=== PATIENT | female | born 1975 | race Caucasian/White ===

== ENCOUNTER 2020-02-06 19:15 | Inpatient (IN) | payer OTHER ==
[2020-02-06 20:35] VITALS: BMI 30.7
--- NOTE | 2020-02-06 21:08 | HP ---
CIWA Score Nausea/Vomitin Muscle Tremors: 4-Moderate,w/Arms Extend Anxiety: 4-Mod. Anxious/Guarded Agitation: 4-Moderately Restless Paroxysmal Sweats: 2 Orientation: 0-Oriented Tacttile Disturbances: 0-None Auditory Disturbances: 0-None Visual Disturbances: 0-None Headache: 0-None Present CIWA-Ar Total Score: 16 - Admission Criteria OASAS Guidelines: Admission for Medically Managed Detox: Requires at least one of the followin. CIWA greater than 12 2. Seizures within the past 24 hours 3. Delirium tremens within the past 24 hours 4. Hallucinations within the past 24 hours 5. Acute intervention needed for co occurring medical disorder 6. Acute intervention needed for co occurring psychiatric disorder 7. Severe withdrawal that cannot be handled at a lower level of care (continued vomiting, continued diarrhea, abnormal vital signs) requiring intravenous medication and/or fluids 8. Admitting History and Physical - Past Medical History ...LMP: 01/22/20 ...: No - Smoking History Smoking history: Never smoked Have you smoked in the past 12 months: No Admission ROS [facility] Chief Complaint: Seeking admission to detox from alcohol Allergies/Adverse Reactions: Allergies Allergy/AdvReac Type Severity Reaction Status Date / Time No Known Allergies Allergy Verified 02/06/20 20:27 History of Present Illness: 44 years old female with three years of alcohol dependence is seeking admission to detox. This is her first admission to [facility] and first inpatient detoxification. She has medical history of hypertension, denies psych. history and denies suicide attempt/suicidal ideation at this time. She reports that she drinks a liter of wine daily. She is unemployed, lives with her family in [facility] and denies pending legal issues. 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 Exam Limitations: No Limitations - Ebola screening Have you traveled outside of the country in the last 21 days: No Have you had contact with anyone from an Ebola affected area: No Have you been sick,other than usual withdrawal symptoms: No Do you have a fever: No - Review of Systems Constitutional: Chills, Malaise, Night Sweats, Changes in sleep EENT: reports: No Symptoms Reported Respiratory: reports: No Symptoms reported Cardiac: reports: No Symptoms Reported GI: reports: Diarrhea (x 10), Nausea, Poor Appetite, Poor Fluid Intake, Vomiting (x 4), Abdominal cramping : reports: No Symptoms Reported Musculoskeletal: reports: No Symptoms Reported Integumentary: reports: Flushing Endocrine: reports: No Symptoms Reported Hematology: reports: No Symptoms Reported Psychiatric: reports: Mood/Affect Appropiate, Orientated x3, Anxious, Depressed Other Systems: Reviewed and Negative Patient History - Patient Medical History Hx Anemia: No Hx Asthma: No Hx Chronic Obstructive Pulmonary Disease (COPD): No Hx Cancer: No Hx Cardiac Disorders: No Hx Congestive Heart Failure: No Hx Hypertension: Yes (Losartan) Hx Hypercholesterolemia: No Hx Pacemaker: No HX Cerebrovascular Accident: No Hx Seizures: No Hx Diabetes: No Hx Gastrointestinal Disorders: No Hx Liver Disease: No Hx Genitourinary Disorders: No Hx Sexually Transmitted Disorders: No Hx Renal Disease (ESRD): No Hx Thyroid Disease: No Hx Human Immunodeficiency Virus (HIV): No (Negative 2020) Hx Hepatitis C: No Hx Depression: Yes Hx Suicide Attempt: No (Denies suicidal ideation) Hx Schizophrenia: No - Patient Surgical History Past Surgical History: Yes Hx Neurologic Surgery: No Hx Cataract Extraction: No Hx Cardiac Surgery: No Hx Lung Surgery: No Hx Breast Surgery: No Hx Breast Biopsy: No Hx Abdominal Surgery: No Hx Appendectomy: No Hx Cholecystectomy: No Hx Genitourinary Surgery: No Hx Section: No Hx Orthopedic Surgery: No Other Surgical History: GASTRO-BYPASS- 2007 Anesthesia Reaction: No - PPD History Previous Implant?: Yes Documented Results: Negative w/o proof Implanted On Prior R Admission?: No PPD to be Administered?: Yes - Reproductive History Patient is a Female of Child Bearing Age (11 -55 yrs old): Yes Last Menstrual Period: 01/22/20 Patient : No - Smoking Cessation Smoking history: Never smoked Have you smoked in the past 12 months: No Hx Chewing Tobacco Use: No Initiated information on smoking cessation: No - Substance & Tx. History Hx Alcohol Use: Yes Hx Substance Use: No Substance Use Type: Alcohol Hx Substance Use Treatment: No - Substances abused Alcohol Substance route: Oral Frequency: Daily Amount used: WINE- 1 LITER Age of first use: 41 Date of last use: 02/05/20 Admission Physical Exam BHS - Vital Signs Vital Signs: Vital Signs - 24 hr 02/06/20 20:29 Temperature 98.1 F Pulse Rate 82 Respiratory 18 Rate Blood Pressure 153/93 - Physical General Appearance: Yes: Moderate Distress, Tremorous, Irritable, Sweating, Anxious HEENTM: Yes: Within Normal Limits Respiratory: Yes: Lungs Clear, Normal Breath Sounds, No Respiratory Distress Neck: Yes: Within Normal Limits Breast: Yes: Breast Exam Deferred Cardiology: Yes: Within Normal Limits Abdominal: Yes: Normal Bowel Sounds, Protuberent Genitourinary: Yes: Within Normal Limits Back: Yes: Normal Inspection Musculoskeletal: Yes: Within Normal Limits Extremities: Yes: Tremors Integumentary: Yes: Warm Lymphatic: Yes: Within Normal Limits - Diagnostic (1) Alcohol dependence with withdrawal, uncomplicated Current Visit: Yes Status: Acute (2) Hypertension Current Visit: Yes Status: Chronic Qualifiers: Hypertension type: essential hypertension Qualified Code(s): I10 - Essential (primary) hypertension (3) Depression Current Visit: Yes Status: Chronic Qualifiers: Depression Type: unspecified Qualified Code(s): F32.9 - Major depressive disorder, single episode, unspecified Cleared for Admission S - Detox or Rehab [facility] Level of Care: Medically Managed Detox Regimen/Protocol: Librium Claeared for Rehab Admission: No Breathalyzer - Breathalyzer Breathalyzer: 0 Urine Drug Screen - Test Device Lot number: [id number] Expiration date: 02/20/21 - Control Is test valid?: No - Results Drug screen NEGATIVE: Yes Inpatient Rehab Admission - Rehab Decision to Admit Inpatient rehab admission?: No
[2020-02-06] MEDS ORDERED: MAG HYDROX/AL HYDROX/SIMETH 30 ML UNIT-DOSE CUP PO PRN (21:28)
[2020-02-06] MEDS ORDERED: ONDANSETRON *ODT* 4 MG TABLET SL PRN (21:28)
[2020-02-06] MEDS ORDERED: BISMUTH SUBSALICYLATE 524 MG/30 ML UD PO PRN (21:28)
[2020-02-06] MEDS ORDERED: hydrOXYzine PAMOATE 25 MG CAPSULE (FP) PO PRN (21:28)
[2020-02-06] MEDS ORDERED: METHOCARBAMOL 500 MG TABLET PO PRN (21:28)
[2020-02-06] MEDS ORDERED: ACETAMINOPHEN 325 MG TABLET (FP) PO PRN ×2 (21:28)
[2020-02-06] MEDS ORDERED: MAGNESIUM CITRATE 300 ML BOTTLE PO PRN (21:28)
[2020-02-06] MEDS ORDERED: MAGNESIUM HYDROX 2400MG/30ML ORAL SUSPENSION 30 ML CUP PO PRN (21:28)
[2020-02-06] MEDS ORDERED: MENTHOL/PHENOL 1 EACH UD MM PRN (21:28)
[2020-02-06] MEDS ORDERED: MELATONIN 5 MG TABLETS PO SCH (22:00)
[2020-02-06] MEDS: THIAMINE HCL 100 MG TABLET (FP) PO SCH (22:47)
[2020-02-06] MEDS: chlordiazePOXIDE HCL 25 MG CAPSULE PO SCH (22:47)
[2020-02-07] MEDS: chlordiazePOXIDE HCL 10 MG CAPSULE PO PRN ×2 (01:56→17:56)
[2020-02-07] MEDS: chlordiazePOXIDE HCL 25 MG CAPSULE PO SCH ×3 (05:21→21:55)
[2020-02-07] MEDS: IBUPROFEN 400 MG TABLET (FP) PO PRN (07:28)
--- NOTE | 2020-02-07 09:18 | EKG ---
Test Reason : Blood Pressure : / mmHG Vent. Rate : 073 BPM Atrial Rate : 073 BPM P-R Int : 128 ms QRS Dur : 074 ms QT Int : 422 ms P-R-T Axes : 052 027 041 degrees QTc Int : 464 ms SINUS RHYTHM WITH MARKED SINUS ARRHYTHMIA OTHERWISE NORMAL ECG NO PREVIOUS ECGS AVAILABLE Confirmed by TEX BERMUDEZ MD ([id number]) on 02/07/2020 9:17:59 AM Referred By: Confirmed By:TEX BERMUDEZ MD
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
[2020-02-07] MEDS ORDERED: hydrOXYzine PAMOATE 50 MG CAPSULE (FP) PO PRN (10:16)
[2020-02-07] MEDS: PRENATAL VITAMINS W/ FOLIC ACID TABLET (FP) PO SCH (10:27)
[2020-02-07] MEDS: LOSARTAN POTASSIUM 50 MG TABLET (FP) PO SCH (10:27)
--- NOTE | 2020-02-07 12:10 | PN ---
[facility] CIWA - CIWA Score Nausea/Vomitin-No Nausea/No Vomiting Muscle Tremors: 3 Anxiety: 3 Agitation: 3 Paroxysmal Sweats: 2 Orientation: 0-Oriented Tacttile Disturbances: 0-None Auditory Disturbances: 0-None Visual Disturbances: 0-None Headache: 0-None Present CIWA-Ar Total Score: 11 S Progress Note (SOAP) Subjective: sweats shakes interrupted sleep body aches Objective: 02/07/20 13:01 Vital Signs Temperature 97.7 F 02/07/20 05:17 Pulse Rate 110 H 02/07/20 06:48 Respiratory Rate 19 02/07/20 06:48 Blood Pressure 125/87 02/07/20 06:48 O2 Sat by Pulse Oximetry (%) 97 02/07/20 05:17 Laboratory Tests 02/06/20 02/07/20 02/07/20 20:07 08:15 08:15 WBC 5.7 RBC 3.69 Hgb 12.2 Hct 36.4 MCV 98.6 H MCH 32.9 MCHC 33.4 RDW 15.9 H Plt Count 281 MPV 7.7 Sodium 137 Potassium 3.8 Chloride 99 Carbon Dioxide 26 Anion Gap 12 BUN 6.1 L Creatinine 1.0 Est GFR (CKD-EPI)AfAm 79.35 Est GFR (CKD-EPI)NonAf 68.46 Random Glucose 123 H Calcium 8.7 Total Bilirubin 2.3 H AST 36 ALT 25 Alkaline Phosphatase 114 Total Protein 7.1 Albumin 3.5 POC Urine HCG, Qual Negative labs noted aaox3 ambulating no acute distress Assessment: 02/07/20 13:02 withdrawals Plan: continue detox
[2020-02-07 12:12] LABS: HEMATOCRIT 36.4 % (32.4-45.2); HEMOGLOBIN 12.2 GM/dL (10.7-15.3); MCH 32.9 pg (25.7-33.7); MCHC 33.4 g/dl (32.0-36.0); MEAN CELL VOLUME 98.6 fl (80-96); MEAN PLT VOLUME 7.7 fl (7.5-11.1); PLATELET COUNT 281 K/MM3 (134-434); RBC 3.69 M/mm3 (3.60-5.2); RDW 15.9 % (11.6-15.6); WHITE BLOOD COUNT 5.7 K/mm3 (4.0-10.0)
[2020-02-07 12:30] LABS: ALBUMIN 3.5 g/dl (3.4-5.0); BILIRUBIN,TOTAL 2.3 mg/dL (0.2-1); BLOOD UREA NITROGEN 6.1 mg/dL (7-18); CALCIUM 8.7 mg/dL (8.5-10.1); POTASSIUM 3.8 mmol/L (3.5-5.1); TOT PROT 7.1 g/dl (6.4-8.2)
[2020-02-07] MEDS: THIAMINE HCL 100 MG TABLET (FP) PO SCH (21:55)
[2020-02-07] MEDS: MELATONIN 5 MG TABLETS PO PRN (21:57)
[2020-02-08] MEDS: chlordiazePOXIDE 5 MG CAPSULE PO SCH ×3 (05:10→21:51)
[2020-02-08] MEDS: LOSARTAN POTASSIUM 50 MG TABLET (FP) PO SCH (10:14)
[2020-02-08] MEDS: PRENATAL VITAMINS W/ FOLIC ACID TABLET (FP) PO SCH (10:14)
--- NOTE | 2020-02-08 10:22 | PN ---
S CIWA - CIWA Score Nausea/Vomitin-No Nausea/No Vomiting Muscle Tremors: 2 Anxiety: 2 Agitation: 2 Paroxysmal Sweats: 2 Orientation: 0-Oriented Tacttile Disturbances: 0-None Auditory Disturbances: 0-None Visual Disturbances: 0-None Headache: 0-None Present CIWA-Ar Total Score: 8 BHS Progress Note (SOAP) Subjective: sweats anxiety feeling much better Objective: 02/08/20 10:22 Vital Signs Temperature 97.3 F L 02/08/20 06:35 Pulse Rate 115 H 02/08/20 06:35 Respiratory Rate 18 02/08/20 06:35 Blood Pressure 127/90 02/08/20 06:35 O2 Sat by Pulse Oximetry (%) 99 02/08/20 06:35 Assessment: 02/08/20 10:26 withdrawals Plan: continue detox clonidine 0.1mg x one d/c in am
[2020-02-08] MEDS ORDERED: cloNIDine HCL 0.1 MG TABLET PO ONE (10:30)
[2020-02-08] MEDS: THIAMINE HCL 100 MG TABLET (FP) PO SCH (21:54)
[2020-02-08] MEDS: MELATONIN 5 MG TABLETS PO PRN (21:54)
[2020-02-09] MEDS ORDERED: chlordiazePOXIDE HCL 10 MG CAPSULE PO PRN
[2020-02-09] MEDS: IBUPROFEN 400 MG TABLET (FP) PO PRN (01:49)
[2020-02-09] MEDS ORDERED: chlordiazePOXIDE HCL 10 MG CAPSULE PO SCH (05:00)
[2020-02-09] MEDS ORDERED: chlordiazePOXIDE HCL 10 MG CAPSULE PO ONE (05:00)
[2020-02-09 05:56] VITALS: BP 113/77; PULSE 80; TEMP 97.3
--- NOTE | 2020-02-09 08:55 | DS ---
[facility] Detox Discharge Summary Admission Date: 02/06/20 Discharge Date: 02/09/20 - History Present History: Alcohol Dependence - Physical Exam Results Vital Signs: Vital Signs Temperature 97.3 F L 02/09/20 05:55 Pulse Rate 80 02/09/20 05:55 Respiratory Rate 18 02/09/20 05:55 Blood Pressure 113/77 02/09/20 05:55 O2 Sat by Pulse Oximetry (%) 96 02/09/20 05:55 Pertinent Admission Physical Exam Findings: Vital Signs Temperature 97.3 F L 02/09/20 05:55 Pulse Rate 80 02/09/20 05:55 Respiratory Rate 18 02/09/20 05:55 Blood Pressure 113/77 02/09/20 05:55 O2 Sat by Pulse Oximetry (%) 96 02/09/20 05:55 Laboratory Tests 02/06/20 02/06/20 02/07/20 20:07 21:29 08:15 WBC RBC Hgb Hct MCV MCH MCHC RDW Plt Count MPV Sodium Potassium Chloride Carbon Dioxide Anion Gap BUN Creatinine Est GFR (CKD-EPI)AfAm Est GFR (CKD-EPI)NonAf Random Glucose Calcium Total Bilirubin AST ALT Alkaline Phosphatase Total Protein Albumin POC Urine HCG, Qual Negative Syphilis Serology Non-reactive COVID-19 (BRANDON) Not detected 02/07/20 02/07/20 08:15 08:15 WBC 5.7 RBC 3.69 Hgb 12.2 Hct 36.4 MCV 98.6 H MCH 32.9 MCHC 33.4 RDW 15.9 H Plt Count 281 MPV 7.7 Sodium 137 Potassium 3.8 Chloride 99 Carbon Dioxide 26 Anion Gap 12 BUN 6.1 L Creatinine 1.0 Est GFR (CKD-EPI)AfAm 79.35 Est GFR (CKD-EPI)NonAf 68.46 Random Glucose 123 H Calcium 8.7 Total Bilirubin 2.3 H AST 36 ALT 25 Alkaline Phosphatase 114 Total Protein 7.1 Albumin 3.5 POC Urine HCG, Qual Syphilis Serology COVID-19 (BRANDON) labs noted aaox3 ambulating no acute distress lungs CTA - Treatment Hospital Course: Detox Protocol Followed, Detoxed Safely, Responded well, Discharged Condition Good, Rehab Referral Accepted - Medication Discharge Medications: Ambulatory Orders Losartan Potassium [Cozaar -] 100 mg PO DAILY 02/06/20 - Diagnosis (1) Alcohol dependence with withdrawal, uncomplicated Current Visit: Yes Status: Chronic (2) Alcohol-induced anxiety disorder Current Visit: Yes Status: Acute (3) Alcohol-induced mood disorder Current Visit: Yes Status: Acute (4) Alcohol-induced sleep disorder Current Visit: Yes Status: Acute (5) Adjustment disorder with mixed anxiety and depressed mood Current Visit: Yes Status: Chronic (6) Depression Current Visit: Yes Status: Chronic Qualifiers: Depression Type: unspecified Qualified Code(s): F32.9 - Major depressive disorder, single episode, unspecified (7) Hypertension Current Visit: Yes Status: Chronic Qualifiers: Hypertension type: essential hypertension Qualified Code(s): I10 - Essential (primary) hypertension (8) Gastric bypass status for obesity Current Visit: Yes Status: Resolved (9) MDD (major depressive disorder), recurrent episode, moderate Current Visit: Yes Status: Ruled-out - AMA Did Patient Leave Against Medical Advice: No
[2020-02-10] MEDS ORDERED: chlordiazePOXIDE HCL 10 MG CAPSULE PO ONE (05:00)
== END 2020-02-09 09:12 | disposition home or self-care (01) | DRG 775 ==
LOC: YASAS 19:15 → Y6N 21:44
PROVIDERS: ADMIT Allergy & Immunology; ATTEND Allergy & Immunology
PROC: HZ2ZZZZ Detoxification Services for Substance Abuse Treatment (ICD-10-PCS; principal; 2020-02-06)
DX: F10.230 Alcohol dependence with withdrawal, uncomplicated (principal); F10.282 Alcohol dependence with alcohol-induced sleep disorder; F10.280 Alcohol dependence with alcohol-induced anxiety disorder; F10.24 Alcohol dependence with alcohol-induced mood disorder; F32.9 Major depressive disorder, single episode, unspecified; F43.23 Adjustment disorder with mixed anxiety and depressed mood; I10 Essential (primary) hypertension; Z98.84 Bariatric surgery status; Z56.0 Unemployment, unspecified
CPT/HCPCS: 36415; 80053; 81025; 85027; 86780; 93005; 93010; J0735; U0003

== ENCOUNTER 2020-03-13 20:47 | Inpatient (IN) | payer OTHER ==
[2020-03-13 21:18] VITALS: BMI 29.8
--- NOTE | 2020-03-13 22:33 | BHS.RME ---
Substance Use & Tx History - Substance Use History Alcohol Substance amount: 2 bottles of wine and 4 x 6-pk beer Frequency of use: Daily Substance route: Oral - Last Treatment Date of last treatment: January 2019 Where was last treatment: Detox Physical/Psych/Mental Status - Behavior General Behavior: Increased activity (restlessness, agitation) - Cooperativeness Cooperativeness: Cooperative - Thinking Thought Processes: Logical - Physical Health Problems Is patient presently having any pain?: No Does patient presently have any injuries (include location): No Does patient currently have a fever: No CIWA Nausea/Vomitin Muscle Tremors: 5 Anxiety: 4-Mod. Anxious/Guarded Agitation: 1-Slight > Activity Paroxysmal Sweats: 1-Minimal Palms Moist Orientation: 0-Oriented Tacttile Disturbances: 2-Mild Itch/Numbness/Burn Auditory Disturbances: 0-None Visual Disturbances: 0-None Headache: 4-Moderately Severe CIWA-Ar Total Score: 20
--- NOTE | 2020-03-13 22:39 | HP ---
CIWA Score Nausea/Vomitin Muscle Tremors: 5 Anxiety: 4-Mod. Anxious/Guarded Agitation: 1-Slight > Activity Paroxysmal Sweats: 1-Minimal Palms Moist Orientation: 0-Oriented Tacttile Disturbances: 2-Mild Itch/Numbness/Burn Auditory Disturbances: 0-None Visual Disturbances: 0-None Headache: 4-Moderately Severe CIWA-Ar Total Score: 20 - Admission Criteria OASAS Guidelines: Admission for Medically Managed Detox: Requires at least one of the followin. CIWA greater than 12 2. Seizures within the past 24 hours 3. Delirium tremens within the past 24 hours 4. Hallucinations within the past 24 hours 5. Acute intervention needed for co occurring medical disorder 6. Acute intervention needed for co occurring psychiatric disorder 7. Severe withdrawal that cannot be handled at a lower level of care (continued vomiting, continued diarrhea, abnormal vital signs) requiring intravenous medication and/or fluids 8. Admitting History and Physical - Past Medical History ...LMP: 01/22/20 - Smoking History Smoking history: Never smoked Have you smoked in the past 12 months: No - Alcohol/Substance Use Hx Alcohol Use: Yes Admission [facility] Allergies/Adverse Reactions: Allergies Allergy/AdvReac Type Severity Reaction Status Date / Time No Known Allergies Allergy Verified 03/13/20 23:52 History of Present Illness: 44 y.o. female requesting detox from alcohol use , latest use today , denies seizures , admits to blackouts , reports tremors if not drinking alcohol , starts drinking in the mornings . PMHX : HTN on Losartan 100 mg daily PSHx : gastric bypass lmp February 20 2020 tobacco : denies Exam Limitations: Clinical Condition - Review of Systems Constitutional: Loss of Appetite EENT: reports: No Symptoms Reported Respiratory: reports: No Symptoms reported Cardiac: reports: Palpitations GI: reports: Diarrhea, Nausea, Poor Appetite, Vomiting : reports: Other (reports decreased urination since she started having diarrhea) Integumentary: reports: Dryness, Other (states allergic to contrast given in Hospital , had CT 2/2 fall) Neuro: reports: Headache, Tremors, Unsteady Gait Endocrine: reports: No Symptoms Reported Hematology: reports: No Symptoms Reported Psychiatric: reports: Orientated x3, Agitated, Anxious, Depressed Patient History - Patient Medical History Hx Anemia: No Hx Asthma: No Hx Chronic Obstructive Pulmonary Disease (COPD): No Hx Cancer: No Hx Cardiac Disorders: No Hx Congestive Heart Failure: No Hx Hypertension: Yes (Losartan) Hx Hypercholesterolemia: No Hx Pacemaker: No HX Cerebrovascular Accident: No Hx Seizures: No Hx Diabetes: No Hx Gastrointestinal Disorders: No Hx Liver Disease: No Hx Genitourinary Disorders: No Hx Sexually Transmitted Disorders: No Hx Renal Disease (ESRD): No Hx Thyroid Disease: No Hx Human Immunodeficiency Virus (HIV): No (Negative 2020) Hx Hepatitis C: No Hx Depression: Yes Hx Suicide Attempt: No (Denies suicidal ideation) Hx Schizophrenia: No - Patient Surgical History Past Surgical History: Yes Hx Neurologic Surgery: No Hx Cataract Extraction: No Hx Cardiac Surgery: No Hx Lung Surgery: No Hx Breast Surgery: No Hx Breast Biopsy: No Hx Abdominal Surgery: No Hx Appendectomy: No Hx Cholecystectomy: No Hx Genitourinary Surgery: No Hx Section: No Hx Orthopedic Surgery: No Other Surgical History: [id number] Anesthesia Reaction: No - PPD History Date: 02/08/20 - Reproductive History Last Menstrual Period: 01/22/20 - Smoking Cessation Smoking history: Never smoked Have you smoked in the past 12 months: No Hx Chewing Tobacco Use: No Admission Physical Exam BHS - Vital Signs Vital Signs: Vital Signs - 24 hr 03/13/20 21:17 Temperature 97.3 F L Pulse Rate 98 H Respiratory 19 Rate Blood Pressure 158/109 H - Physical General Appearance: Yes: Disheveled, Tremorous, Anxious HEENTM: Yes: EOMI, Hearing grossly Normal, Normocephalic, Normal Voice Respiratory: Yes: Chest Non-Tender, Lungs Clear, Normal Breath Sounds, No Respiratory Distress, No Accessory Muscle Use Neck: Yes: No masses,lesions,Nodules, Trachea in good position Cardiology: Yes: Regular Rhythm, Regular Rate, S1, S2, Tachycardia Abdominal: Yes: Normal Bowel Sounds, Non Tender, Soft Back: Yes: Normal Inspection Musculoskeletal: Yes: Gait Steady, Back pain Extremities: Yes: Non-Tender, Tremors Neurological: Yes: Alert, Motor Strength 5/5 Integumentary: Yes: Dry, Other (descuamation bernadine feet .) - Diagnostic (1) Alcohol dependence with withdrawal, uncomplicated Current Visit: Yes Status: Chronic Breathalyzer - Breathalyzer Breathalyzer: 0 Urine Drug Screen - Test Device Lot number: [id number] Expiration date: 01/24/22 - Control Is test valid?: Yes - Results Drug screen NEGATIVE: No Urine drug screen results: BZO-Benzodiazepines Inpatient Rehab Admission - Rehab Decision to Admit Inpatient rehab admission?: No
[2020-03-13] MEDS ORDERED: ONDANSETRON *ODT* 4 MG TABLET SL PRN (22:41)
[2020-03-13] MEDS ORDERED: ACETAMINOPHEN 325 MG TABLET (FP) PO PRN (22:41)
[2020-03-13] MEDS ORDERED: MAG HYDROX/AL HYDROX/SIMETH 30 ML UNIT-DOSE CUP PO PRN (22:41)
[2020-03-13] MEDS ORDERED: MAGNESIUM CITRATE 300 ML BOTTLE PO PRN (22:41)
[2020-03-13] MEDS ORDERED: MENTHOL/PHENOL 1 EACH UD MM PRN (22:41)
[2020-03-13] MEDS ORDERED: MAGNESIUM HYDROX 2400MG/30ML ORAL SUSPENSION 30 ML CUP PO PRN (22:41)
[2020-03-13] MEDS ORDERED: chlordiazePOXIDE HCL 25 MG CAPSULE PO PRN (22:43)
[2020-03-13] MEDS ORDERED: METOPROLOL TARTRATE 25 MG TABLET (FP) PO ONE (23:30)
[2020-03-13] MEDS: chlordiazePOXIDE HCL 25 MG CAPSULE PO SCH (23:51)
[2020-03-14] MEDS: METHOCARBAMOL 500 MG TABLET PO PRN (00:06)
[2020-03-14] MEDS: ACETAMINOPHEN 325 MG TABLET (FP) PO PRN ×2 (01:40→23:16)
[2020-03-14] MEDS: chlordiazePOXIDE HCL 25 MG CAPSULE PO SCH ×4 (05:40→22:07)
[2020-03-14] MEDS: LOSARTAN POTASSIUM 50 MG TABLET (FP) PO SCH (10:08)
[2020-03-14 10:28] LABS: BLOOD UREA NITROGEN 18.4 mg/dL (7-18); CREATININE 1.4 mg/dL (0.55-1.3); POTASSIUM 3.3 mmol/L (3.5-5.1); TOT PROT 6.8 g/dl (6.4-8.2)
[2020-03-14 10:32] LABS: BILIRUBIN,TOTAL 1.8 mg/dL (0.2-1)
[2020-03-14] MEDS: PRENATAL VITAMINS W/ FOLIC ACID TABLET (FP) PO SCH (10:36)
[2020-03-14 10:53] LABS: MCH 31.7 pg (25.7-33.7); MCHC 33.3 g/dl (32.0-36.0); MEAN CELL VOLUME 95.4 fl (80-96); MEAN PLT VOLUME 8.1 fl (7.5-11.1); PLATELET COUNT 195 K/MM3 (134-434); RBC 4.09 M/mm3 (3.60-5.2); RDW 14.6 % (11.6-15.6)
--- NOTE | 2020-03-14 12:34 | PN ---
S CIWA - CIWA Score Nausea/Vomitin-No Nausea/No Vomiting Muscle Tremors: 3 Anxiety: 2 Agitation: 3 Paroxysmal Sweats: 3 Orientation: 0-Oriented Tacttile Disturbances: 0-None Auditory Disturbances: 0-None Visual Disturbances: 0-None Headache: 0-None Present CIWA-Ar Total Score: 11 S Progress Note (SOAP) Subjective: sweats shakes agitation interrupted sleep body aches irritable Objective: 03/14/20 12:31 Vital Signs Temperature 98.9 F 03/14/20 08:35 Pulse Rate 104 H 03/14/20 08:35 Respiratory Rate 16 03/14/20 08:35 Blood Pressure 122/83 03/14/20 08:35 O2 Sat by Pulse Oximetry (%) 97 03/14/20 05:37 Laboratory Tests 03/13/20 03/14/20 03/14/20 21:10 08:00 08:00 WBC 15.0 H RBC 4.09 Hgb 13.0 Hct 39.0 MCV 95.4 MCH 31.7 MCHC 33.3 RDW 14.6 Plt Count 195 D MPV 8.1 Sodium 134 L Potassium 3.3 L Chloride 98 Carbon Dioxide 25 Anion Gap 11 BUN 18.4 H Creatinine 1.4 H Est GFR (CKD-EPI)AfAm 52.83 Est GFR (CKD-EPI)NonAf 45.58 Random Glucose 142 H Calcium 8.0 L Total Bilirubin 1.8 H AST 120 H ALT 52 Alkaline Phosphatase 100 Total Protein 6.8 Albumin 3.0 L POC Urine HCG, Qual Negative labs noted elevated WBC noted low potassium 3.3 noted elevated BUN, glucose, bilirubin and ast. aaox3 ambulating no acute distress Assessment: 03/14/20 12:33 withdrawals Plan: continue detox increase fluids repeat labs kdur ordered
[2020-03-14] MEDS: POTASSIUM CHLORIDE TABS 20 MEQ TABLET.ER (FP) PO SCH (12:46)
[2020-03-14] MEDS ORDERED: MELATONIN 5 MG TABLETS PO SCH (22:00)
[2020-03-14] MEDS: THIAMINE HCL 100 MG TABLET (FP) PO SCH (22:07)
[2020-03-15] MEDS: chlordiazePOXIDE HCL 25 MG CAPSULE PO SCH ×4 (06:31→22:45)
[2020-03-15] MEDS: ACETAMINOPHEN 325 MG TABLET (FP) PO PRN ×2 (06:32→17:57)
[2020-03-15] MEDS: LOSARTAN POTASSIUM 50 MG TABLET (FP) PO SCH (10:21)
[2020-03-15] MEDS: PRENATAL VITAMINS W/ FOLIC ACID TABLET (FP) PO SCH (10:21)
[2020-03-15] MEDS: POTASSIUM CHLORIDE TABS 20 MEQ TABLET.ER (FP) PO SCH (10:21)
--- NOTE | 2020-03-15 13:31 | PN ---
S CIWA - CIWA Score Nausea/Vomitin-No Nausea/No Vomiting Muscle Tremors: 3 Anxiety: 2 Agitation: 2 Paroxysmal Sweats: 2 Orientation: 0-Oriented Tacttile Disturbances: 0-None Auditory Disturbances: 0-None Visual Disturbances: 0-None Headache: 0-None Present CIWA-Ar Total Score: 9 BHS Progress Note (SOAP) Subjective: sweats little shakes interrupted sleep body aches Objective: 03/15/20 13:31 Vital Signs Temperature 98.6 F 03/15/20 08:39 Pulse Rate 102 H 03/15/20 08:39 Respiratory Rate 18 03/15/20 08:39 Blood Pressure 126/76 03/15/20 08:39 O2 Sat by Pulse Oximetry (%) 97 03/15/20 08:39 Laboratory Tests 03/13/20 03/13/20 03/14/20 11:30 21:10 08:00 WBC RBC Hgb Hct MCV MCH MCHC RDW Plt Count MPV Sodium Potassium Chloride Carbon Dioxide Anion Gap BUN Creatinine Est GFR (CKD-EPI)AfAm Est GFR (CKD-EPI)NonAf Random Glucose Calcium Total Bilirubin AST ALT Alkaline Phosphatase Total Protein Albumin POC Urine HCG, Qual Negative Syphilis Serology Non-reactive COVID-19 (BR[facility]ON) Not detected 03/14/20 03/14/20 08:00 08:00 WBC 15.0 H RBC 4.09 Hgb 13.0 Hct 39.0 MCV 95.4 MCH 31.7 MCHC 33.3 RDW 14.6 Plt Count 195 D MPV 8.1 Sodium 134 L Potassium 3.3 L Chloride 98 Carbon Dioxide 25 Anion Gap 11 BUN 18.4 H Creatinine 1.4 H Est GFR (CKD-EPI)AfAm 52.83 Est GFR (CKD-EPI)NonAf 45.58 Random Glucose 142 H Calcium 8.0 L Total Bilirubin 1.8 H AST 120 H ALT 52 Alkaline Phosphatase 100 Total Protein 6.8 Albumin 3.0 L POC Urine HCG, Qual Syphilis Serology COVID-19 (BRANDON) repeat labs have been ordered aaox3 ambulating no acute distress Assessment: 03/15/20 13:31 withdrawals Plan: continue detox
--- NOTE | 2020-03-15 13:56 | EKG ---
Test Reason : Blood Pressure : / mmHG Vent. Rate : 121 BPM Atrial Rate : 121 BPM P-R Int : 136 ms QRS Dur : 082 ms QT Int : 318 ms P-R-T Axes : 046 005 042 degrees QTc Int : 451 ms SINUS TACHYCARDIA OTHERWISE NORMAL ECG WHEN COMPARED WITH ECG OF 06-FEB-2020 20:47, VENT. RATE HAS INCREASED BY 48 BPM Confirmed by Derian Joya ([id number]) on 03/15/2020 1:55:53 PM Referred By: Tariq Martin Confirmed By:Derian Joya
[2020-03-15] MEDS: MELATONIN 5 MG TABLETS PO SCH (22:45)
[2020-03-15] MEDS: THIAMINE HCL 100 MG TABLET (FP) PO SCH (22:45)
[2020-03-16] MEDS ORDERED: chlordiazePOXIDE HCL 10 MG CAPSULE PO PRN
[2020-03-16] MEDS: hydrOXYzine PAMOATE 25 MG CAPSULE (FP) PO PRN (01:09)
[2020-03-16] MEDS: chlordiazePOXIDE HCL 10 MG CAPSULE PO SCH ×4 (05:18→22:12)
[2020-03-16] MEDS: ACETAMINOPHEN 325 MG TABLET (FP) PO PRN (05:20)
[2020-03-16] MEDS ORDERED: cloNIDine HCL 0.1 MG TABLET PO ONE (08:48)
[2020-03-16] MEDS: LOSARTAN POTASSIUM 50 MG TABLET (FP) PO SCH (10:26)
[2020-03-16] MEDS: POTASSIUM CHLORIDE TABS 20 MEQ TABLET.ER (FP) PO SCH (10:27)
[2020-03-16] MEDS: PRENATAL VITAMINS W/ FOLIC ACID TABLET (FP) PO SCH (10:27)
[2020-03-16 10:56] LABS: BASO % 0.2 % (0-2.0); EOS % 0.2 % (0-4.5); HEMATOCRIT 34.7 % (32.4-45.2); HEMOGLOBIN 11.5 GM/dL (10.7-15.3); LYMPH % 7.7 % (8-40); MCH 31.9 pg (25.7-33.7); MCHC 33.1 g/dl (32.0-36.0); MEAN CELL VOLUME 96.4 fl (80-96); MEAN PLT VOLUME 9.4 fl (7.5-11.1); MONO % 5.3 % (3.8-10.2); NEUT % 86.6 % (42.8-82.8); PLATELET COUNT 114 K/MM3 (134-434); RBC 3.59 M/mm3 (3.60-5.2); RDW 15.2 % (11.6-15.6); WHITE BLOOD COUNT 9.5 K/mm3 (4.0-10.0)
[2020-03-16 11:05] LABS: ALBUMIN 2.2 g/dl (3.4-5.0); BILIRUBIN,TOTAL 0.5 mg/dL (0.2-1); BLOOD UREA NITROGEN 22.5 mg/dL (7-18); CALCIUM 7.9 mg/dL (8.5-10.1); POTASSIUM 3.8 mmol/L (3.5-5.1); TOT PROT 5.9 g/dl (6.4-8.2)
--- NOTE | 2020-03-16 14:26 | PN ---
S CIWA - CIWA Score Nausea/Vomitin-No Nausea/No Vomiting Muscle Tremors: 2 Anxiety: 1-Mildly Anxious Agitation: 1-Slight > Activity Paroxysmal Sweats: 1-Minimal Palms Moist Orientation: 0-Oriented Tacttile Disturbances: 0-None Auditory Disturbances: 0-None Visual Disturbances: 0-None Headache: 0-None Present CIWA-Ar Total Score: 5 BHS Progress Note (SOAP) Subjective: agitation anxiety restless Objective: 03/16/20 14:24 Vital Signs Temperature 97.1 F L 03/16/20 13:02 Pulse Rate 112 H 03/16/20 13:02 Respiratory Rate 20 03/16/20 13:02 Blood Pressure 102/59 L 03/16/20 13:02 O2 Sat by Pulse Oximetry (%) 100 03/16/20 13:02 Laboratory Tests 03/13/20 03/13/20 03/14/20 11:30 21:10 08:00 WBC RBC Hgb Hct MCV MCH MCHC RDW Plt Count MPV Absolute Neuts (auto) Neutrophils % Lymphocytes % Monocytes % Eosinophils % Basophils % Nucleated RBC % Sodium Potassium Chloride Carbon Dioxide Anion Gap BUN Creatinine Est GFR (CKD-EPI)AfAm Est GFR (CKD-EPI)NonAf Random Glucose Calcium Total Bilirubin AST ALT Alkaline Phosphatase Total Protein Albumin POC Urine HCG, Qual Negative Syphilis Serology Non-reactive COVID-19 ([facility]) Not detected 03/14/20 03/14/20 03/16/20 08:00 08:00 07:50 WBC 15.0 H 9.5 RBC 4.09 3.59 L Hgb 13.0 11.5 Hct 39.0 34.7 MCV 95.4 96.4 H MCH 31.7 31.9 MCHC 33.3 33.1 RDW 14.6 15.2 Plt Count 195 D 114 L D MPV 8.1 9.4 D Absolute Neuts (auto) 8.3 H Neutrophils % 86.6 H Lymphocytes % 7.7 L Monocytes % 5.3 Eosinophils % 0.2 Basophils % 0.2 Nucleated RBC % 0 Sodium 134 L Potassium 3.3 L Chloride 98 Carbon Dioxide 25 Anion Gap 11 BUN 18.4 H Creatinine 1.4 H Est GFR (CKD-EPI)AfAm 52.83 Est GFR (CKD-EPI)NonAf 45.58 Random Glucose 142 H Calcium 8.0 L Total Bilirubin 1.8 H AST 120 H ALT 52 Alkaline Phosphatase 100 Total Protein 6.8 Albumin 3.0 L POC Urine HCG, Qual Syphilis Serology COVID-19 ([facility]) 03/16/20 07:50 WBC RBC Hgb Hct MCV MCH MCHC RDW Plt Count MPV Absolute Neuts (auto) Neutrophils % Lymphocytes % Monocytes % Eosinophils % Basophils % Nucleated RBC % Sodium 139 Potassium 3.8 Chloride 106 Carbon Dioxide 26 Anion Gap 6 L BUN 22.5 H Creatinine 1.0 Est GFR (CKD-EPI)AfAm 79.35 Est GFR (CKD-EPI)NonAf 68.46 Random Glucose 88 Calcium 7.9 L Total Bilirubin 0.5 AST 44 H ALT 38 Alkaline Phosphatase 120 H Total Protein 5.9 L Albumin 2.2 L POC Urine HCG, Qual Syphilis Serology COVID-19 ([facility]ON) aaox3 ambulating no acute distress labs noted potassium, ast improving BUN increased; encouraged fluids Assessment: 03/16/20 14:25 withdrawals Plan: continue detox
[2020-03-16] MEDS: BISMUTH SUBSALICYLATE 524 MG/30 ML UD PO PRN ×2 (18:18→21:34)
[2020-03-16] MEDS: THIAMINE HCL 100 MG TABLET (FP) PO SCH (22:12)
[2020-03-16] MEDS: MELATONIN 5 MG TABLETS PO SCH (23:56)
[2020-03-17] MEDS: METHOCARBAMOL 500 MG TABLET PO PRN (04:08)
[2020-03-17] MEDS ORDERED: chlordiazePOXIDE HCL 10 MG CAPSULE PO SCH (05:00)
[2020-03-17] MEDS: ACETAMINOPHEN 325 MG TABLET (FP) PO PRN (05:37)
--- NOTE | 2020-03-17 09:16 | PN ---
S CIWA - CIWA Score Nausea/Vomitin-No Nausea/No Vomiting Muscle Tremors: 1-None Visible, but Rush Anxiety: 1-Mildly Anxious Agitation: 0-Normal Activity Paroxysmal Sweats: No Perspiration Orientation: 0-Oriented Tacttile Disturbances: 0-None Auditory Disturbances: 0-None Visual Disturbances: 0-None Headache: 0-None Present CIWA-Ar Total Score: 2 BHS Progress Note (SOAP) Subjective: feeling better Objective: 03/17/20 09:13 Vital Signs Temperature 98.2 03/17/20 09:15 Pulse Rate 118 03/17/20 09:15 Respiratory Rate 20 03/17/20 09:15 Blood Pressure 119/76 03/17/20 09:15 O2 Sat by Pulse Oximetry (%) 100 03/17/20 09:15 Laboratory Tests 03/13/20 03/13/20 03/14/20 11:30 21:10 08:00 WBC RBC Hgb Hct MCV MCH MCHC RDW Plt Count MPV Absolute Neuts (auto) Neutrophils % Lymphocytes % Monocytes % Eosinophils % Basophils % Nucleated RBC % Sodium Potassium Chloride Carbon Dioxide Anion Gap BUN Creatinine Est GFR (CKD-EPI)AfAm Est GFR (CKD-EPI)NonAf Random Glucose Calcium Total Bilirubin AST ALT Alkaline Phosphatase Total Protein Albumin POC Urine HCG, Qual Negative Syphilis Serology Non-reactive COVID-19 ([facility]) Not detected 03/14/20 03/14/20 03/16/20 08:00 08:00 07:50 WBC 15.0 H 9.5 RBC 4.09 3.59 L Hgb 13.0 11.5 Hct 39.0 34.7 MCV 95.4 96.4 H MCH 31.7 31.9 MCHC 33.3 33.1 RDW 14.6 15.2 Plt Count 195 D 114 L D MPV 8.1 9.4 D Absolute Neuts (auto) 8.3 H Neutrophils % 86.6 H Lymphocytes % 7.7 L Monocytes % 5.3 Eosinophils % 0.2 Basophils % 0.2 Nucleated RBC % 0 Sodium 134 L Potassium 3.3 L Chloride 98 Carbon Dioxide 25 Anion Gap 11 BUN 18.4 H Creatinine 1.4 H Est GFR (CKD-EPI)AfAm 52.83 Est GFR (CKD-EPI)NonAf 45.58 Random Glucose 142 H Calcium 8.0 L Total Bilirubin 1.8 H AST 120 H ALT 52 Alkaline Phosphatase 100 Total Protein 6.8 Albumin 3.0 L POC Urine HCG, Qual Syphilis Serology COVID-19 ([facility]) 03/16/20 07:50 WBC RBC Hgb Hct MCV MCH MCHC RDW Plt Count MPV Absolute Neuts (auto) Neutrophils % Lymphocytes % Monocytes % Eosinophils % Basophils % Nucleated RBC % Sodium 139 Potassium 3.8 Chloride 106 Carbon Dioxide 26 Anion Gap 6 L BUN 22.5 H Creatinine 1.0 Est GFR (CKD-EPI)AfAm 79.35 Est GFR (CKD-EPI)NonAf 68.46 Random Glucose 88 Calcium 7.9 L Total Bilirubin 0.5 AST 44 H ALT 38 Alkaline Phosphatase 120 H Total Protein 5.9 L Albumin 2.2 L POC Urine HCG, Qual Syphilis Serology COVID-19 ([facility]ON) aaox3 ambulating no acute distress lungs CTA Assessment: 03/17/20 09:19 no s/s of withdrawals noted Plan: d/c today
[2020-03-17] MEDS: hydrOXYzine PAMOATE 25 MG CAPSULE (FP) PO PRN (09:19)
--- NOTE | 2020-03-17 09:24 | DS ---
[facility] Detox Discharge Summary Admission Date: 03/13/20 Discharge Date: 03/17/20 - History Present History: Alcohol Dependence - Physical Exam Results Vital Signs: Vital Signs Temperature 96.4 F L 03/17/20 05:24 Pulse Rate 101 H 03/17/20 05:24 Respiratory Rate 03/17/20 05:24 Blood Pressure 138/86 03/17/20 05:24 O2 Sat by Pulse Oximetry (%) 99 03/17/20 05:24 Pertinent Admission Physical Exam Findings: Vital Signs Temperature 96.4 F L 03/17/20 05:24 Pulse Rate 101 H 03/17/20 05:24 Respiratory Rate 03/17/20 05:24 Blood Pressure 138/86 03/17/20 05:24 O2 Sat by Pulse Oximetry (%) 99 03/17/20 05:24 Laboratory Tests 03/13/20 03/13/20 03/14/20 11:30 21:10 08:00 WBC RBC Hgb Hct MCV MCH MCHC RDW Plt Count MPV Absolute Neuts (auto) Neutrophils % Lymphocytes % Monocytes % Eosinophils % Basophils % Nucleated RBC % Sodium Potassium Chloride Carbon Dioxide Anion Gap BUN Creatinine Est GFR (CKD-EPI)AfAm Est GFR (CKD-EPI)NonAf Random Glucose Calcium Total Bilirubin AST ALT Alkaline Phosphatase Total Protein Albumin POC Urine HCG, Qual Negative Syphilis Serology Non-reactive COVID-19 (BRANDON) Not detected 03/14/20 03/14/20 03/16/20 08:00 08:00 07:50 WBC 15.0 H 9.5 RBC 4.09 3.59 L Hgb 13.0 11.5 Hct 39.0 34.7 MCV 95.4 96.4 H MCH 31.7 31.9 MCHC 33.3 33.1 RDW 14.6 15.2 Plt Count 195 D 114 L D MPV 8.1 9.4 D Absolute Neuts (auto) 8.3 H Neutrophils % 86.6 H Lymphocytes % 7.7 L Monocytes % 5.3 Eosinophils % 0.2 Basophils % 0.2 Nucleated RBC % 0 Sodium 134 L Potassium 3.3 L Chloride 98 Carbon Dioxide 25 Anion Gap 11 BUN 18.4 H Creatinine 1.4 H Est GFR (CKD-EPI)AfAm 52.83 Est GFR (CKD-EPI)NonAf 45.58 Random Glucose 142 H Calcium 8.0 L Total Bilirubin 1.8 H AST 120 H ALT 52 Alkaline Phosphatase 100 Total Protein 6.8 Albumin 3.0 L POC Urine HCG, Qual Syphilis Serology COVID-19 ([facility]ON) 03/16/20 07:50 WBC RBC Hgb Hct MCV MCH MCHC RDW Plt Count MPV Absolute Neuts (auto) Neutrophils % Lymphocytes % Monocytes % Eosinophils % Basophils % Nucleated RBC % Sodium 139 Potassium 3.8 Chloride 106 Carbon Dioxide 26 Anion Gap 6 L BUN 22.5 H Creatinine 1.0 Est GFR (CKD-EPI)AfAm 79.35 Est GFR (CKD-EPI)NonAf 68.46 Random Glucose 88 Calcium 7.9 L Total Bilirubin 0.5 AST 44 H ALT 38 Alkaline Phosphatase 120 H Total Protein 5.9 L Albumin 2.2 L POC Urine HCG, Qual Syphilis Serology COVID-19 (BRANDON) aaox3 ambulating no acute distress lungs CTA - Treatment Hospital Course: Detox Protocol Followed, Detoxed Safely, Responded well, Discharged Condition Good, Rehab Referral Accepted - Medication Discharge Medications: Ambulatory Orders Losartan Potassium [Cozaar -] 100 mg PO DAILY 02/06/20 - Diagnosis (1) Alcohol dependence with withdrawal, uncomplicated Current Visit: Yes Status: Chronic (2) Alcohol-induced anxiety disorder Current Visit: No Status: Acute (3) Alcohol-induced mood disorder Current Visit: No Status: Acute (4) Alcohol-induced sleep disorder Current Visit: No Status: Acute (5) Adjustment disorder with mixed anxiety and depressed mood Current Visit: No Status: Chronic (6) Depression Current Visit: No Status: Chronic Qualifiers: Depression Type: unspecified Qualified Code(s): F32.9 - Major depressive disorder, single episode, unspecified (7) Hypertension Current Visit: No Status: Chronic Qualifiers: Hypertension type: essential hypertension Qualified Code(s): I10 - Essential (primary) hypertension (8) Gastric bypass status for obesity Current Visit: No Status: Resolved (9) MDD (major depressive disorder), recurrent episode, moderate Current Visit: No Status: Ruled-out - AMA Did Patient Leave Against Medical Advice: No
[2020-03-17 09:27] VITALS: BP 119/76; PULSE 118; TEMP 98.2
[2020-03-18] MEDS ORDERED: chlordiazePOXIDE HCL 10 MG CAPSULE PO ONE (05:00)
== END 2020-03-17 10:15 | disposition home or self-care (01) | DRG 775 ==
LOC: YASAS 20:47 → Y6N 23:15
PROVIDERS: ADMIT Allergy & Immunology; ATTEND Allergy & Immunology
PROC: HZ2ZZZZ Detoxification Services for Substance Abuse Treatment (ICD-10-PCS; principal; 2020-03-13)
DX: F10.230 Alcohol dependence with withdrawal, uncomplicated (principal); F10.282 Alcohol dependence with alcohol-induced sleep disorder; F10.280 Alcohol dependence with alcohol-induced anxiety disorder; F10.24 Alcohol dependence with alcohol-induced mood disorder; F32.9 Major depressive disorder, single episode, unspecified; F43.23 Adjustment disorder with mixed anxiety and depressed mood; I10 Essential (primary) hypertension; Z98.84 Bariatric surgery status; Z91.041 Radiographic dye allergy status
CPT/HCPCS: 36415; 80053; 81025; 85025; 85027; 86780; 93005; 93010; J0735; Q0162; U0003

== ENCOUNTER 2020-05-13 04:22 | Inpatient (IN) | payer OTHER ==
[2020-05-13] MEDS ORDERED: ONDANSETRON *ODT* 4 MG TABLET SL PRN (05:01)
[2020-05-13] MEDS ORDERED: ACETAMINOPHEN 325 MG TABLET (FP) PO PRN ×2 (05:01)
[2020-05-13] MEDS ORDERED: MAGNESIUM HYDROX 2400MG/30ML ORAL SUSPENSION 30 ML CUP PO PRN (05:01)
[2020-05-13] MEDS ORDERED: METHOCARBAMOL 500 MG TABLET PO PRN (05:01)
[2020-05-13] MEDS ORDERED: MAG HYDROX/AL HYDROX/SIMETH 30 ML UNIT-DOSE CUP PO PRN (05:01)
[2020-05-13] MEDS ORDERED: DICYCLOMINE HCL 10 MG CAPSULE PO PRN (05:01)
[2020-05-13] MEDS ORDERED: MAGNESIUM CITRATE 300 ML BOTTLE PO PRN (05:01)
[2020-05-13] MEDS ORDERED: BISMUTH SUBSALICYLATE 524 MG/30 ML UD PO PRN (05:01)
[2020-05-13] MEDS ORDERED: guaiFENesin 200 MG/10 ML 10 ML UNIT-DOSE CUPS PO PRN (05:01)
[2020-05-13] MEDS ORDERED: MENTHOL/PHENOL 1 EACH UD MM PRN (05:01)
[2020-05-13] MEDS ORDERED: P-EPHED 60MG/TRIPROLIDI 2.5MG TABLET PO PRN (05:01)
[2020-05-13] MEDS ORDERED: TRIMETHOBENZAMIDE HCL 200MG/2ML INJ IM PRN (05:15)
[2020-05-13] MEDS: chlordiazePOXIDE HCL 25 MG CAPSULE PO SCH ×4 (06:59→22:07)
[2020-05-13] MEDS: hydrOXYzine PAMOATE 25 MG CAPSULE (FP) PO PRN ×2 (06:59→14:52)
[2020-05-13] MEDS: IBUPROFEN 400 MG TABLET (FP) PO PRN ×2 (08:05→10:05)
[2020-05-13] MEDS: chlordiazePOXIDE HCL 25 MG CAPSULE PO PRN ×2 (08:51→13:02)
[2020-05-13 09:39] LABS: POTASSIUM 3.6 mmol/L (3.5-5.1)
[2020-05-13 09:42] LABS: HEMATOCRIT 37.1 % (32.4-45.2); HEMOGLOBIN 12.1 GM/dL (10.7-15.3); MCH 31.6 pg (25.7-33.7); MCHC 32.7 g/dl (32.0-36.0); MEAN CELL VOLUME 96.8 fl (80-96); MEAN PLT VOLUME 8.4 fl (7.5-11.1); PLATELET COUNT 120 K/MM3 (134-434); RBC 3.83 M/mm3 (3.60-5.2); RDW 15.2 % (11.6-15.6)
[2020-05-13 09:46] LABS: CALCIUM 8.3 mg/dL (8.5-10.1)
[2020-05-13 09:47] LABS: ALBUMIN 3.3 g/dl (3.4-5.0); BLOOD UREA NITROGEN 5.8 mg/dL (7-18)
[2020-05-13 09:52] LABS: BILIRUBIN,TOTAL 1.4 mg/dL (0.2-1); TOT PROT 7.4 g/dl (6.4-8.2)
[2020-05-13] MEDS: PRENATAL VITAMINS W/ FOLIC ACID TABLET (FP) PO SCH (10:03)
[2020-05-13] MEDS ORDERED: THIAMINE HCL 100 MG TABLET (FP) PO SCH (22:00)
[2020-05-13] MEDS ORDERED: MELATONIN 5 MG TABLETS PO SCH (22:00)
[2020-05-14] MEDS: chlordiazePOXIDE HCL 25 MG CAPSULE PO PRN (03:16)
[2020-05-14] MEDS: IBUPROFEN 400 MG TABLET (FP) PO PRN (03:16)
[2020-05-14] MEDS: hydrOXYzine PAMOATE 25 MG CAPSULE (FP) PO PRN (06:28)
[2020-05-14] MEDS: chlordiazePOXIDE HCL 25 MG CAPSULE PO SCH ×2 (06:28→10:11)
[2020-05-14 09:34] VITALS: BP 125/93; PULSE 125; TEMP 96.9
[2020-05-14] MEDS: PRENATAL VITAMINS W/ FOLIC ACID TABLET (FP) PO SCH (10:11)
[2020-05-15] MEDS ORDERED: chlordiazePOXIDE HCL 10 MG CAPSULE PO PRN
[2020-05-15] MEDS ORDERED: chlordiazePOXIDE HCL 10 MG CAPSULE PO SCH (05:00)
[2020-05-16] MEDS ORDERED: chlordiazePOXIDE HCL 10 MG CAPSULE PO SCH (05:00)
[2020-05-17] MEDS ORDERED: chlordiazePOXIDE HCL 10 MG CAPSULE PO ONE (05:00)
== END 2020-05-14 11:42 | disposition left against medical advice (07) | DRG 770 ==
LOC: YASAS 04:22 → Y3N 05:27
PROVIDERS: ADMIT Allergy & Immunology; ATTEND Allergy & Immunology
PROC: HZ2ZZZZ Detoxification Services for Substance Abuse Treatment (ICD-10-PCS; principal; 2020-05-13)
DX: F10.230 Alcohol dependence with withdrawal, uncomplicated (principal); F10.282 Alcohol dependence with alcohol-induced sleep disorder; F10.280 Alcohol dependence with alcohol-induced anxiety disorder; F10.24 Alcohol dependence with alcohol-induced mood disorder; F19.24 Other psychoactive substance dependence with psychoactive substance-induced mood disorder; F43.23 Adjustment disorder with mixed anxiety and depressed mood; I10 Essential (primary) hypertension; R73.9 Hyperglycemia, unspecified; R25.3 Fasciculation; E66.9 Obesity, unspecified; Z62.810 Personal history of physical and sexual abuse in childhood; Z98.84 Bariatric surgery status
CPT/HCPCS: 36415; 80053; 85027; 86780; 93005; 93010; C9803; U0003